=== PATIENT | female | born 2000 | race Caucasian/White ===

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

== ENCOUNTER 2023-05-22 16:52 | Emergency (ER) | payer BC ==
[2023-05-22 17:31] VITALS: TEMP 99.3
--- NOTE | 2023-05-22 17:32 | ERPHSYRPT ---
- History of Present Illness Time Seen by Provider: 05/22/23 17:28 Source: patient Exam Limitations: no limitations Patient Subjective Stated Complaint: light vaginal bleeding with urination x 2 since 1400. mild pelvic cramping Triage Nursing Assessment: . Physician History: Patient is a 22-year-old female G1, P0 M0 A0, currently 18 weeks presents to our ED for evaluation of light vaginal bleeding which is observed during urination. Patient observed for bleeding today at approximately 2 PM. Bleeding is associated with mild pelvic cramping. No trauma. No fever. Patient's HVAC INSTRUCTOR is Dr. Barraza. No trauma. No fever. No dysuria. Symptoms are mild to moderate in intensity. No specific worsening improving factors. Patient advised that she had a pelvic exam for infection with Dr. Barraza Patient declined another vaginal/pelvic exam today. Patient states she just wants to be sure her baby is okay. Patient declined pain medication. She voices no other complaints or concerns at this time. Portions of this note were created with voice recognition technology. There may be grammatical, spelling, punctuation or sound alike errors Timing/Duration: today Severity: moderate Modifying Factors: Improves With: nothing Associated Symptoms: denies symptoms Allergies/Adverse Reactions: No Known Drug Allergies Allergy (Verified 05/22/23 17:13) Hx Tetanus, Diphtheria Vaccination/Date Given: No (unknown) Hx Influenza Vaccination/Date Given: (unknown) Travel Risk - International Travel Have you traveled outside of the country in past 3 weeks: No - Coronavirus Screening Are you exhibiting any of the following symptoms?: No Close contact with a COVID-19 positive Pt in past 14-21 Days: No - Vaccine Status Have you recieved a Covid-19 vaccination: No - Review of Systems Constitutional: No Symptoms, No Fever, No Chills Eyes: No Symptoms Ears, Nose, & Throat: No Symptoms Respiratory: No Symptoms, No Cough, No Dyspnea Cardiac: No Symptoms, No Chest Pain, No Edema, No Syncope Abdominal/Gastrointestinal: No Symptoms, No Abdominal Pain, No Nausea, No Vomiting, No Diarrhea Genitourinary Symptoms: No Symptoms, No Dysuria Musculoskeletal: No Symptoms, No Back Pain, No Neck Pain Skin: No Symptoms, No Rash Neurological: No Symptoms, No Dizziness, No Focal Weakness, No Sensory Changes Psychological: No Symptoms Endocrine: No Symptoms Hematologic/Lymphatic: No Symptoms Immunological/Allergic: No Symptoms All Other Systems: Reviewed and Negative - Past Medical History Pertinent Past Medical History: No - Past Surgical History Past Surgical History: Yes Gastrointestinal: Appendectomy - Social History Smoking Status: Current every day smoker Exposure to second hand smoke: No Drug Use: marijuana Patient Lives Alone: Yes - Female History Hx Last Menstrual Period: January 05 Hx Now: Yes Gestational Age: 18 weeks - Nursing Vital Signs Nursing Vital Signs: Initial Vital Signs Temperature 99.3 F 05/22/23 17:06 Pulse Rate 97 H 05/22/23 17:06 Respiratory Rate 18 05/22/23 17:06 Blood Pressure 136/67 05/22/23 17:06 O2 Sat by Pulse Oximetry 98 05/22/23 17:06 Pain Scale Pain Intensity 5 - Physical Exam General Appearance: no apparent distress, alert Eye Exam: PERRL/EOMI, eyes nml inspection Ears, Nose, Throat Exam: normal ENT inspection, TMs normal, pharynx normal, moist mucous membranes Neck Exam: normal inspection, non-tender, supple, full range of motion Respiratory Exam: normal breath sounds, lungs clear, airway intact, No respiratory distress Cardiovascular Exam: regular rate/rhythm, normal heart sounds, normal peripheral pulses Gastrointestinal/Abdomen Exam: soft, normal bowel sounds, No tenderness, No mass Back Exam: normal inspection, normal range of motion, No CVA tenderness, No vertebral tenderness Extremity Exam: normal inspection, normal range of motion, pelvis stable Neurologic Exam: alert, oriented x 3, cooperative, normal mood/affect, sensation nml, No motor deficits Skin Exam: normal color, warm, dry, No rash Lymphatic Exam: No adenopathy SpO2 Interpretation: normal SpO2: 98 O2 Delivery: Room Air - Course Nursing assessment & vital signs reviewed: Yes - Radiology Ultrasound Exam OB Ultrasound: discussed w/radiologist (Per food service team member heart tone is 153. Viable fetus. No abnormalities observed on today's pelvic ultrasound) Ordered Tests: Active Orders 24 hr Category Date Time Status OB FOLLOW UP PER FETUS [US] Stat Exams 05/22/23 17:25 Taken CULTURE,URINE Stat Lab 05/22/23 17:31 Received HCG, Quantitative (Inhouse) Stat Lab 05/22/23 17:31 Completed UA W/RFX UR CULTURE Stat Lab 05/22/23 17:31 Completed Medication Summary Discontinued Medications Generic Name Dose Route Start Last Admin Trade Name Freq PRN Reason Stop Dose Admin Nitrofurantoin Macrocrystals 100 mg 05/22/23 18:23 05/22/23 18:31 Nitrofurantoin Macro 100 Mg Capsule PO 05/22/23 18:24 100 mg STAT ONE Administration Nitrofurantoin Macrocrystals Confirm 05/22/23 18:31 Nitrofurantoin Macro 100 Mg Capsule Administered 05/22/23 18:32 Dose 100 mg .ROUTE .STK-MED ONE Rho Immune Globulin 300 mcg 05/22/23 18:54 Rho(D) Immune Globulin 300 Mcg/Syr Ml IM 05/22/23 18:55 .ONCE ONE Lab/Rad Data: Laboratory Results 05/22/23 05/22/23 05/22/23 Range/Units 17:38 17:31 17:31 Beta HCG, Quant [id number] mIU/ml Urine Color Yellow (Yellow) Urine Appearance Clear (Clear) Urine pH 6.5 (4.6-8.0) Ur Specific [place] 1.015 (1.005-1.030) Urine Protein Negative (Negative) Urine Glucose (UA) Negative (Negative) mg/dL Urine Ketones Negative (Negative) Urine Blood Moderate A (Negative) Urine Nitrite Negative (Negative) Urine Bilirubin Negative (Negative) Urine Urobilinogen 1.0 A (0.2) mg/dL Ur Leukocyte Esterase Small A (Negative) U Hyaline Cast (Auto) NONE SEEN (0-2) /LPF Urine Microscopic RBC 6-10 A (0-5) /HPF Urine Microscopic WBC 11-20 A (0-5) /HPF Ur Epithelial Cells Moderate A (None Seen) /HPF Urine Bacteria Rare A (None Seen) /HPF Urine Culture Reflexed YES (NO) ABO Group A Rh Factor NEGATIVE Antibody Screen NEGATIVE (NEGATIVE) - Progress Progress: improved Progress Note: 05/22/23 19:03 Patient reassessed. She is resting comfortably. No active bleeding. Work-up reveals urinary tract infection. Patient received a dose of Macrobid in our ED. Patient is Rh-. The patient received a dose of RhoGAM in our ED as well. Ultrasound reveals a viable fetus with a heart rate of 153. No abnormalities observed. Case discussed with patient's HVAC INSTRUCTOR physician Dr. Barraza who agrees with plan of care. No further recommendations per patient's OB. We will discharge patient home. Vital stable. Patient voices no other complaints or concerns at this time. Portions of this note were created with voice recognition technology. There may be grammatical, spelling, punctuation or sound alike errors 05/22/23 19:09 Patient is 22-year-old female currently 18 weeks . Patient presents to our ED with some vaginal bleeding. Patient declined a pelvic exam. Physical exam otherwise unremarkable. Patient is Rh-. RhoGAM administered. UTI observed on urinalysis. Patient received a dose of Macrobid. A prescription for Macrobid forwarded to patient's pharmacy. Patient resting comfortably. No active bleeding. Will discharge home. Patient will follow-up with HVAC INSTRUCTOR within 48 hours for reevaluation. Complexity of problems addressed is moderate acute complicated No critical care time Complex of data reviewed and analyzed is extensive Labs ordered. Labs reviewed. Clinical correlation made between findings and history and physical examination. Final diagnosis established. Patient treated accordingly. Patient management discussed with HVAC INSTRUCTOR physician, Risk complication and or risk morbidity/mortality of patient management is moderate. A prescription for Macrobid for to the patient's pharmacy. Patient agrees to follow-up with her HVAC INSTRUCTOR physician within 48 hours for reevaluation. Time to discharge patient approximately 15 minutes. No social determinants of health present to impede follow-up. Plan of care established for shared decision making. Vital stable. Patient voices no other complaints or concerns at this time. Portions of this note were created with voice recognition technology. There may be grammatical, spelling, punctuation or sound alike errors \ Counseled pt/family regarding: lab results, diagnosis, need for follow-up, rad results - Departure Departure Disposition: Home Clinical Impression: UTI (urinary tract infection), Vaginal bleeding in patient at less than 20 weeks gestation, Threatened miscarriage Condition: Stable Critical Care Time: No Referrals: DOCTOR,NO FAMILY [Primary Care Provider] - Follow up/PCP as directed Additional Instructions: Discharge/Care Plan ARACELIMAGGY was seen on 05/22/23 in the Emergency Room. The patient was counseled regarding Diagnosis,Lab results, Imaging studies, need for follow up and when to return to the Emergency Room. Prescriptions given: Discharge Note I have spoken with the patient and/or caregivers. I have explained the patient's condition, diagnosis and treatment plan based on the information available to me at this time. I have answered the patient's and/or caregiver's questions and addressed any concerns. The patient and/or caregivers have as good understanding of the patient's diagnosis, condition and treatment plan as can be expected at this point. The vital signs have been stable. The patient's condition is stable and appropriate for discharge from the emergency department. The patient will pursue further outpatient evaluation with the primary care physician or other designated or consulting physician as outlined in the discharge instructions. The patient and/or caregivers are agreeable to this plan of care and follow-up instructions have been explained in detail. The patient and/or caregivers have received these instruction. The patient/and or caregivers are aware that any significant change in condition or worsening of symptoms should prompt an immediate return to this or the closest emergency department or call 911. Prescriptions: Nitrofurantoin Macro 100 mg [Macrobid 100MG Capsule] 100 mg PO BID 7 Days #14 cap
[2023-05-22 17:57] LABS: Appearance Clear (Clear); Bacteria Rare /HPF (None Seen); Bilirubin Negative (Negative); Blood Moderate (Negative); Epithelial Cells Moderate /HPF (None Seen); Glucose, Urine Negative (Negative); Hyaline Casts NONE SEEN /LPF (0-2); Ketones Negative (Negative); Leukocyte Esterase Small (Negative); Nitrite Negative (Negative); Ph 6.5 (4.6-8.0); Protein,Urine Dip Negative (Negative); Specific Gravity 1.015 (1.005-1.030)
[2023-05-22 18:00] LABS: ADD URINE CULTURE? YES (NO)
[2023-05-22] MEDS ORDERED: Macrobid 100MG Capsule ONE (18:31)
[2023-05-22] MEDS: Macrobid 100MG Capsule PO ONE (18:31)
[2023-05-22 18:35] LABS: ABO TYPING A; Antibody Screen NEGATIVE (NEGATIVE); RH TYPING NEGATIVE
[2023-05-22 19:07] VITALS: BP 113/58; RESP 16
[2023-05-22] MEDS: Rhogam Plus 300 MCG IM ONE (19:23)
[2023-05-22 19:28] VITALS: PULSE 94; O2SAT 97
--- NOTE | 2023-05-23 08:52 | XRAY ---
Indication: Bleeding. viability. Limited transabdominal OB ultrasound demonstrates single intrauterine with mean gestational age 18 weeks 6 days. heart rate 153 BPM. Posterior placenta without abruption/previa. Cervical length is 3.5 cm. Comment: Preliminary report was given.
== END 2023-05-22 19:44 | disposition home or self-care (01) ==
LOC: ED 16:52
DX: O23.42 Unspecified infection of urinary tract in pregnancy, second trimester (principal); N39.0 Urinary tract infection, site not specified; O20.0 Threatened abortion; Z3A.18 18 weeks gestation of pregnancy; Z28.310 Unvaccinated for COVID-19; Z72.0 Tobacco use
CPT/HCPCS: 36415; 76816; 81001; 84702; 86850; 86900; 86901; 87086; 96372; 99284; J2790; A9270-GY

== ENCOUNTER 2023-09-03 15:40 | Observation (INO) | payer BC, OTHER ==
[2023-09-03 22:43] VITALS: RESP 18
[2023-09-03] MEDS: Lactated Ringers 1,000 ML IV SCH (22:49)
[2023-09-04] MEDS: Lactated Ringers 1,000 ML IV SCH (02:20)
[2023-09-04 05:30] LABS: ALBUMIN 2.9 g/dL (3.5-5.0); ANION GAP 8.3 MEQ/L (5-15); BILIRUBIN,TOTAL 0.2 mg/dL (0.2-1.3); Calcium 8.7 mg/dL (8.4-10.2); Creatinine 1 0.47 mg/dL (0.52-1.04); EST GLOMERULAR FILTRATION RATE 137.1 ML/MIN; Potassium 3.8 mmol/L (3.5-5.1); Total Protein 5.6 g/dL (6.3-8.2)
[2023-09-04] MEDS ORDERED: Sodium Chloride 0.9% 1000 ML 1,000 ML IV STA (08:17)
[2023-09-04 09:23] VITALS: BP 123/58; PULSE 95; TEMP 98.6; O2SAT 97
== END 2023-09-04 12:45 | disposition home or self-care (01) ==
LOC: OB.NST 15:40 → OB 19:27
PROVIDERS: ADMIT Obstetrics & Gynecology; ATTEND Obstetrics & Gynecology
DX: Z34.03 Encounter for supervision of normal first pregnancy, third trimester (principal); Z3A.33 33 weeks gestation of pregnancy; R82.4 Acetonuria
CPT/HCPCS: 36415; 59025; 80053; 82947; 99213; G0378

== ENCOUNTER 2023-09-23 19:21 | Observation (INO) | payer BC, OTHER ==
[2023-09-23 20:02] VITALS: BP 113/68; PULSE 102; RESP 20; TEMP 98.2; O2SAT 97
[2023-09-23 20:19] LABS: ADD URINE CULTURE? YES (NO); Appearance Cloudy (Clear); Bacteria Rare /HPF (None Seen); Bilirubin Small (Negative); Blood Negative (Negative); Budding Yeast Rare /HPF (None Seen); Epithelial Cells Moderate /HPF (None Seen); Glucose, Urine Negative (Negative); Hyaline Casts NONE SEEN /LPF (0-2); Ketones Trace (Negative); Leukocyte Esterase Trace (Negative); Nitrite Negative (Negative); Protein,Urine Dip Trace (Negative); RBC 0-2 /HPF (0-5); Specific Gravity 1.025 (1.005-1.030)
== END 2023-09-23 20:56 | disposition home or self-care (01) ==
LOC: OB 19:21
PROVIDERS: ADMIT Family Medicine; ATTEND Family Medicine
DX: Z34.03 Encounter for supervision of normal first pregnancy, third trimester (principal); Z3A.36 36 weeks gestation of pregnancy
CPT/HCPCS: 81001; 87086; G0378; G0379

== ENCOUNTER 2023-10-13 08:41 | Inpatient (IN) | payer BC, OTHER ==
[2023-10-13] MEDS ORDERED: TYLENOL EXTRA STRENGTH 500 MG PO PRN (16:00)
[2023-10-13] MEDS ORDERED: Zofran 4 MG/2 ML VIAL IV PRN (16:00)
[2023-10-13] MEDS ORDERED: BRETHINE 1 MG/ML SQ PRN (16:00)
[2023-10-13 16:41] LABS: Absolute Neutrophil Ct (ANC) 8.47 x10^3/uL (1.4-6.9); BASOPHIL % 0.2 % (0.0-0.4); Basophil (Absolute #) 0.02 x10^3/uL (0-0.4); Eosinophil % 0.5 % (0.00-5.0); Eosinophil (Absolute #) 0.05 x10^3/uL (0-0.5); Hematocrit 28.4 % (35-47); Hemoglobin 9.3 g/dL (12.0-16.0); IMMATURE GRAN # 0.05 x10^3u/L (0.00-0.03); IMMATURE GRAN % 0.5 % (0.00-0.4); Lymphocytes % 12.1 % (24.0-44.0); Mean Cell Volume 84.8 fL (78-100); Mean Corpuscular Hemoglobin 27.8 pg (26-32); Mean Corpuscular Hgb Concent. 32.7 g/dL (32-36); Monocyte (Absolute #) 0.88 x10^3/uL (0.0-1.3); Monocytes % 8.2 % (0.0-12.0); Neutrophil % 78.5 % (36.0-66.0); Platelet Count 207 x10^3/uL (150-450); Red Blood Count 3.35 x10^6/uL (4.1-5.4); Red Cell Distribution Width 13.6 % (11.5-14.0); White Blood Count 10.8 x10^3/uL (4.0-10.5)
[2023-10-13] MEDS: CYTOTEC PO SCH ×4 (16:58→23:01)
[2023-10-13 16:59] LABS: Amphetamine,Urine NEGATIVE (NEGATIVE); Barbiturate,Urine NEGATIVE (NEGATIVE); Benzodiazepine,Urine NEGATIVE (NEGATIVE); Cocaine,Urine NEGATIVE (NEGATIVE); Methadone,Urine NEGATIVE (NEGATIVE); Opiate,Urine NEGATIVE (NEGATIVE); PCP,Urine NEGATIVE (NEGATIVE); THC,Urine NEGATIVE (NEGATIVE)
[2023-10-13 17:26] LABS: ABO TYPING A; Antibody Screen NEGATIVE (NEGATIVE); RH TYPING NEGATIVE
[2023-10-13 19:19] LABS: Appearance Turbid (Clear); Bilirubin Moderate (Negative); Blood Negative (Negative); Glucose, Urine 100 mg/dL (Negative); Ketones Trace (Negative); Leukocyte Esterase Trace (Negative); Nitrite Positive (Negative); Ph 5.5 (4.6-8.0); Protein,Urine Dip 30 (Negative); Specific Gravity >=1.030 (1.005-1.030)
[2023-10-13 19:54] LABS: Bacteria Few /HPF (None Seen)
[2023-10-13 19:59] LABS: ADD URINE CULTURE? YES (NO); Amourphous Crystal Many /HPF (None Seen); Epithelial Cells Few /HPF (None Seen); Hyaline Casts None Seen /LPF (0-2); RBC 0-2 /HPF (0-5); WBC 0-2 /HPF (0-5)
[2023-10-14] MEDS ORDERED: OMNIPEN 2 GM*** 2 G in Sodium Chloride 100ML MINI-BAG PLUS 100 ML IV ONE ×2
[2023-10-14] MEDS ORDERED: Lactated Ringers 1,000 ML IV ONE ×2 (00:19→07:00)
[2023-10-14] MEDS: Lactated Ringers 1,000 ML IV SCH ×4 (00:22→16:06)
[2023-10-14] MEDS: CYTOTEC PO SCH ×3 (00:59→05:15)
[2023-10-14] MEDS: OMNIPEN 1 GM*** 1 GM in Sodium Chloride 100ML MINI-BAG PLUS 100 ML IV SCH ×4 (03:49→16:06)
[2023-10-14] MEDS ORDERED: Ephedrine Sulfate 50 MG/ML IV PRN (07:00)
[2023-10-14] MEDS ORDERED: PITOCIN 30 UNITS/ LR 500 ML 30 UNITS/500 ML PLAST..BAG IV SCH ×2 (07:00→12:00)
[2023-10-14] MEDS ORDERED: FENTANYL 2 MCG-BUPIV 0.125%-NS 250 ML Epidur 250 ML EPIDURAL SCH (07:00)
[2023-10-14] MEDS ORDERED: XYLOCAINE 1% HCL 20 ML MDV IJ PRN (12:00)
[2023-10-14] MEDS ORDERED: Dermoplast Spray ONE (20:38)
[2023-10-14] MEDS ORDERED: TUCKS TP ONE (20:38)
[2023-10-14] MEDS ORDERED: Dermoplast Spray TP PRN (21:39)
[2023-10-14] MEDS ORDERED: CORTISONE 1% CREAM TP PRN (21:39)
[2023-10-14] MEDS: TUCKS TP PRN (21:45)
[2023-10-14] MEDS: MOTRIN 400 MG PO PRN (23:36)
[2023-10-15 07:22] LABS: Absolute Neutrophil Ct (ANC) 7.56 x10^3/uL (1.4-6.9); BASOPHIL % 0.2 % (0.0-0.4); Basophil (Absolute #) 0.02 x10^3/uL (0-0.4); Eosinophil % 0.6 % (0.00-5.0); Eosinophil (Absolute #) 0.06 x10^3/uL (0-0.5); Hematocrit 26.3 % (35-47); Hemoglobin 8.5 g/dL (12.0-16.0); IMMATURE GRAN # 0.06 x10^3u/L (0.00-0.03); IMMATURE GRAN % 0.6 % (0.00-0.4); Lymphocyte (Absolute #) 2.24 x10^3/uL (1.0-4.6); Lymphocytes % 20.8 % (24.0-44.0); Mean Cell Volume 87.4 fL (78-100); Mean Corpuscular Hemoglobin 28.2 pg (26-32); Mean Corpuscular Hgb Concent. 32.3 g/dL (32-36); Mean Platelet Volume 9.5 fL (7.5-11.0); Monocyte (Absolute #) 0.81 x10^3/uL (0.0-1.3); Monocytes % 7.5 % (0.0-12.0); Neutrophil % 70.3 % (36.0-66.0); Platelet Count 165 x10^3/uL (150-450); Red Blood Count 3.01 x10^6/uL (4.1-5.4); Red Cell Distribution Width 13.8 % (11.5-14.0); White Blood Count 10.8 x10^3/uL (4.0-10.5)
[2023-10-15] MEDS: Docusate Sodium 100 MG PO SCH ×2 (09:14→21:35)
[2023-10-15] MEDS: MOTRIN 400 MG PO PRN ×2 (09:14→21:36)
[2023-10-15] MEDS ORDERED: Adacel Vial IM ONE (10:00)
[2023-10-15] MEDS ORDERED: FERREX 150 PO SCH (10:00)
--- NOTE | 2023-10-15 10:32 | PCM.NOTE ---
Date and Time: 10/15/23 1031 Subjective Assessment: ppd 1 sp pt resting in bed and doing well. able to ambulate and tolerate diet vss afebrile abd; soft uterus; firm lochia; mild hgb. 8.3 a/p sp ppd 1 anticipate discharge tomorrow OBJECTIVE DATA Vital Signs: Vital Signs - 24 hr Temp Pulse Resp BP BP Pulse Ox 10/15/23 02:16 98.3 F 81 18 114/53 96 10/14/23 23:39 98.6 F 87 18 134/63 100 10/14/23 22:05 98.6 F 109 H 18 122/69 97 10/14/23 21:30 98.6 F 122 H 20 118/57 97 10/14/23 21:00 98.5 F 120 H 20 140/63 96 10/14/23 20:30 98.6 F 111 H 18 115/56 111 H 10/14/23 20:15 98.9 F 121 H 18 118/55 97 10/14/23 20:00 98.8 F 105 H 18 121/58 96 10/14/23 19:30 98.4 F 107 H 18 110/53 98 10/14/23 18:45 98.4 F 105 H 18 124/56 96 10/14/23 18:20 98.4 F 112 H 18 135/57 97 10/14/23 18:00 98.4 F 99 H 18 122/59 97 10/14/23 17:45 98.4 F 104 H 18 118/57 97 10/14/23 17:30 98.4 F 95 H 18 110/55 97 10/14/23 17:15 98.4 F 96 H 18 116/56 97 10/14/23 17:00 98.0 F 102 H 18 103/60 97 10/14/23 16:45 98.0 F 103 H 18 103/66 97 10/14/23 16:30 98.0 F 103 H 18 125/61 97 10/14/23 16:15 98.0 F 90 18 122/77 97 10/14/23 16:00 98.0 F 82 18 119/58 119/58 96 10/14/23 15:45 98.0 F 100 H 18 139/62 96 10/14/23 15:30 98.0 F 84 18 125/58 98 10/14/23 15:15 98.0 F 88 18 120/68 98 10/14/23 15:00 98.0 F 81 18 102/54 98 10/14/23 14:45 98.0 F 84 18 97/48 98 10/14/23 14:15 98.0 F 100 H 18 98 10/14/23 14:00 98.0 F 93 H 18 115/62 98 10/14/23 13:45 98.0 F 90 18 105/51 98 10/14/23 13:30 98.0 F 90 18 105/51 98 10/14/23 13:15 98.0 F 90 18 102/52 98 10/14/23 13:00 98.0 F 83 18 99/49 98 10/14/23 12:45 98.0 F 82 18 96/53 98 10/14/23 12:30 98.0 F 93 H 18 113/53 96 10/14/23 12:15 98.0 F 90 18 114/53 96 10/14/23 12:00 98.0 F 96 H 18 109/57 109/57 97 10/14/23 11:45 98.0 F 96 H 18 106/54 96 10/14/23 11:30 98.0 F 90 18 99/52 96 10/14/23 11:15 98.0 F 83 18 99/52 92 L 10/14/23 11:00 98.0 F 90 18 106/58 100 10/14/23 10:45 98.0 F 100 H 18 107/62 100 Pain Assessment - Last Documented Pain Intensity [Lower] 2 Pain Intensity 6 Pain Scale Used 0-10 Pain Scale Intake and Output: Intake & Output 10/12/23 10/13/23 10/14/23 10/15/23 11:59 11:59 11:59 11:59 Intake Total 1000 2300 Output Total 500 Balance 1000 1800 Weight 115.666 kg Lab Results: Lab Results-Last 24 Hours 10/14/23 10/15/23 Range/Units 20:24 07:15 WBC 10.8 H (4.0-10.5) x10^3/uL RBC 3.01 L (4.1-5.4) x10^6/uL Hgb 8.5 L (12.0-16.0) g/dL Hct 26.3 L (35-47) % MCV 87.4 (78-100) fL MCH 28.2 (26-32) pg MCHC 32.3 (32-36) g/dL RDW 13.8 (11.5-14.0) % Plt Count 165 (150-450) x10^3/uL MPV 9.5 (7.5-11.0) fL Gran % 70.3 H (36.0-66.0) % Immature Gran % (Auto) 0.6 H (0.00-0.4) % Nucleat RBC Rel Count 0.0 (0.00-0.1) % Eos # (Auto) 0.06 (0-0.5) x10^3/uL Immature Gran # (Auto) 0.06 H (0.00-0.03) x10^3u/L Absolute Lymphs (auto) 2.24 (1.0-4.6) x10^3/uL Absolute Monos (auto) 0.81 (0.0-1.3) x10^3/uL Absolute Nucleated RBC 0.00 (0.00-0.01) x10^3u/L Lymphocytes % 20.8 L (24.0-44.0) % Monocytes % 7.5 (0.0-12.0) % Eosinophils % 0.6 (0.00-5.0) % Basophils % 0.2 (0.0-0.4) % Absolute Granulocytes 7.56 H (1.4-6.9) x10^3/uL Basophils # 0.02 (0-0.4) x10^3/uL Screen SEE SEPARATE REPORT Assessment/Plan (1) Vaginal delivery Current Visit: Yes Status: Acute Code(s): O80 - ENCOUNTER FOR FULL-TERM UNCOMPLICATED DELIVERY
[2023-10-15] MEDS ORDERED: Rhogam Plus 300 MCG IM ONE (11:00)
[2023-10-15] MEDS: FERREX 150 PO SCH ×2 (11:48→21:35)
[2023-10-15] MEDS: TYLENOL EXTRA STRENGTH 500 MG PO PRN (16:36)
[2023-10-16] MEDS: TYLENOL EXTRA STRENGTH 500 MG PO PRN (02:22)
--- NOTE | 2023-10-16 07:55 | PCM.NOTE ---
Date and Time: 10/16/23 0754 Subjective Assessment: ppd 2 sp pt resting in bed and doing well able to ambulate and tolerate diet. vss afebrile abd; soft uterus; firm lochia; mild a/p sp ppd 2 dc home today should fu in office in 3 wks for check will give iron supplementation for hgb at 8.5 OBJECTIVE DATA Vital Signs: Vital Signs - 24 hr Temp Pulse Resp BP Pulse Ox 10/16/23 02:00 97 F 81 20 119/63 98 10/15/23 20:00 97.1 F 82 18 121/62 98 10/15/23 14:00 97.7 F 88 18 103/55 96 10/15/23 08:00 97.5 F 98 H 18 117/64 98 Pain Assessment - Last Documented Pain Intensity [Lower] 0 Pain Intensity 0 Pain Scale Used 0-10 Pain Scale Intake and Output: Intake & Output 10/13/23 10/14/23 10/15/23 10/16/23 11:59 11:59 11:59 11:59 Intake Total 1000 2300 3000 Output Total 500 Balance 1000 1800 3000 Weight 115.666 kg Assessment/Plan (1) Vaginal delivery Current Visit: Yes Status: Acute Code(s): O80 - ENCOUNTER FOR FULL-TERM UNCOMPLICATED DELIVERY (2) Anemia affecting Current Visit: Yes Status: Acute Code(s): O99.019 - ANEMIA COMPLICATING , UNSPECIFIED TRIMESTER
--- NOTE | 2023-10-16 08:00 | PCM.DS ---
Discharge Summary Date of Admission: 10/14/23 08:41 Admitting Physician: CARMELITA SUAREZ DO Consults: Consults on Case 10/14/23 07:00 Notify Anesthesia Provider PRN Primary Care Provider: CARMELITA SUAREZ DO Allergies Allergies No Known Drug Allergies Allergy (Verified 09/21/23 09:07) Hospital Summary - Hospital Course Hospital Course: pt admitted on oct 13 at 39 wks gestation with hx of gdm diet control and was placed with liao induction and oral cytotec to be removed on oct 14 and pitocin was started and subsequently delivered live baby girl via without complication on oct 14. during period did well able to ambulate and tolerate diet. hgb at 8.5 and stable. pt at this time stable for discharge and was given iron supplementation to take twice daily and was advised to fu in office in 3 wks for care. all questions answered to her satisfaction. pt did have minor vaginal sulcus tear during delivery repaired with 2-0 chromic suture and hemostasis obtaind. - Vitals & Intake/Output Vital Signs: Vital Signs Temperature 97 F 10/16/23 02:00 Pulse Rate 81 10/16/23 02:00 Respiratory Rate 20 10/16/23 02:00 Blood Pressure 119/63 10/16/23 02:00 O2 Sat by Pulse Oximetry 98 10/16/23 02:00 Intake & Output: Intake & Output 10/13/23 10/14/23 10/15/23 10/16/23 11:59 11:59 11:59 11:59 Intake Total 1000 2300 3000 Output Total 500 Balance 1000 1800 3000 Weight 115.666 kg - Lab Result Diagrams: 10/15/23 07:15 Micro Results-Entire Visit: Microbiology 10/14/23 10:30 Urine Culture - Final Catherized NO GROWTH 10/13/23 16:30 Urine Culture - Final Clean Catch Midstream MIXED JANEE; 3 OR MORE TYPES. NO PREDOMINANT ORGANISM. NO FURTHER WORKUP. PLEASE RESUBMIT IF CLINICALLY INDICATED. Final Diagnosis/Problem List - Final Discharge Diagnosis/Problem (1) Vaginal delivery Current Visit: Yes Status: Acute Code(s): O80 - ENCOUNTER FOR FULL-TERM UNCOMPLICATED DELIVERY (2) Anemia affecting Current Visit: Yes Status: Acute Code(s): O99.019 - ANEMIA COMPLICATING PRE GNANCY, UNSPECIFIED TRIMESTER - Discharge Disposition: Home, Self-Care Condition: Stable Prescriptions: New Ferrous Sulfate 325 mg [Feosol 325 mg] 325 mg PO BID #60 tablet No Action Metformin HCl 500 mg [Glucophage 500 MG] 500 mg PO BIDWM Follow up with: CARMELITA SUAREZ DO [Primary Care Provider] - 3 weeks
[2023-10-16] MEDS: FERREX 150 PO SCH (10:34)
[2023-10-16] MEDS: Docusate Sodium 100 MG PO SCH (10:34)
[2023-10-16 10:53] VITALS: RESP 18
[2023-10-16] MEDS: MOTRIN 400 MG PO PRN (15:08)
[2023-10-16] MEDS: TUCKS TP PRN (16:42)
[2023-10-16 18:36] VITALS: BP 132/67; PULSE 90; TEMP 98.6; O2SAT 99
== END 2023-10-16 18:30 | disposition home or self-care (01) | DRG 807 ==
LOC: OB 08:41 → OBSVTOIN 10-14 08:41
PROVIDERS: ADMIT Obstetrics & Gynecology; ATTEND Obstetrics & Gynecology
PROC: 10E0XZZ Delivery of Products of Conception, External Approach (ICD-10-PCS; principal; 2023-10-14)
PROC: 0HQ9XZZ Repair Perineum Skin, External Approach (ICD-10-PCS; 2023-10-14)
DX: O69.81X0 Labor and delivery complicated by cord around neck, without compression, not applicable or unspecified (principal); Z37.0 Single live birth; O24.420 Gestational diabetes mellitus in childbirth, diet controlled; O70.0 First degree perineal laceration during delivery; Z3A.39 39 weeks gestation of pregnancy; O99.013 Anemia complicating pregnancy, third trimester; Z20.828 Contact with and (suspected) exposure to other viral communicable diseases
CPT/HCPCS: 36415; 80307; 81001; 85025; 85461; 86850; 86900; 86901; 87086; 87651; 90471; 90715; 96372; G0378; G0379; J0290; J2590; J2790; A9270-GY

== ENCOUNTER 2023-10-19 23:05 | Emergency (ER) | payer BC, OTHER ==
--- NOTE | 2023-10-19 23:07 | ERPHSYRPT ---
- History of Present Illness Time Seen by Provider: 10/19/23 23:07 Source: patient, family Exam Limitations: no limitations Physician History: This is a 23-year-old white female patient Dr. Samuels who presents with bilateral earaches. Her right ear pain began first followed by the left ear pain. Both earaches travel down her throat when she swallows. The left ear has more pain now than the right ear. The pain is described as sharp, throbbing. Patient denies fever and chills. Patient was exposed to individuals that tested positive for COVID approximately 3 days ago. Timing/Duration: gradual onset Severity: mild (To moderate) ENT Location: ear (R), ear (L) Prearrival Treatment: no prearrival treatment Associated Symptoms: ear pain (R), ear pain (L) Allergies/Adverse Reactions: No Known Drug Allergies Allergy (Verified 10/19/23 23:22) Hx Tetanus, Diphtheria Vaccination/Date Given: No (unknown) Hx Influenza Vaccination/Date Given: (unknown) Travel Risk - International Travel Have you traveled outside of the country in past 3 weeks: No - Coronavirus Screening Are you exhibiting any of the following symptoms?: No Close contact with a COVID-19 positive Pt in past 14-21 Days: No - Vaccine Status Have you recieved a Covid-19 vaccination: No - Review of Systems Constitutional: No Symptoms Eyes: No Symptoms Ears, Nose, & Throat: Ear Pain (Bilateral left worse than right) Respiratory: No Symptoms Cardiac: No Symptoms Abdominal/Gastrointestinal: No Symptoms Genitourinary Symptoms: No Symptoms Musculoskeletal: No Symptoms Skin: No Symptoms Neurological: No Symptoms Psychological: No Symptoms Endocrine: No Symptoms Hematologic/Lymphatic: No Symptoms Immunological/Allergic: No Symptoms All Other Systems: Reviewed and Negative - Past Medical History Pertinent Past Medical History: Yes Neurological History: No Pertinent History ENT History: No Pertinent History Cardiac History: No Pertinent History Respiratory History: No Pertinent History Endocrine Medical History: Other Musculoskeletal History: No Pertinent History GI Medical History: No Pertinent History History: No Pertinent History Psycho-Social History: No Pertinent History Female Reproductive Disorders: No Pertinent History Other Medical History: GDM - Past Surgical History Past Surgical History: Yes Gastrointestinal: Appendectomy Genitourinary: No Pertinent History Musculoskeletal: No Pertinent History Female Surgical History: No Pertinent History Other Surgical History: 2011 Appendectomy - Social History Smoking Status: Former smoker How long have you smoked: 4 yrs Exposure to second hand smoke: Yes Drug Use: none Patient Lives Alone: Yes - Nursing Vital Signs Nursing Vital Signs: Initial Vital Signs Pulse Rate 95 H 10/19/23 23:06 Respiratory Rate 18 10/19/23 23:06 O2 Sat by Pulse Oximetry 96 10/19/23 23:06 Pain Scale Pain Intensity 9 - Physical Exam General Appearance: no apparent distress, alert, anxiety Eye Exam: bilateral eye: normal inspection, PERRL, EOMI Ear Exam: right ear: canal normal, left ear: erythema, swelling, bilateral ear: auricle normal, tenderness, TM red Throat Exam: normal Neck Exam: normal inspection, non-tender, supple, full range of motion Cardiovascular/Respiratory Exam: chest non-tender, no respiratory distress Abdominal Exam: non-tender Neurologic Exam: alert, oriented x 3, cooperative, human resources leader II-XII nml as tested, normal mood/affect, nml cerebellar function, nml station & gait, sensation nml Skin Exam: normal color, warm, dry SpO2 Interpretation: normal O2 Delivery: Room Air - Course Nursing assessment & vital signs reviewed: Yes Ordered Tests: Medication Summary Discontinued Medications Generic Name Dose Route Start Last Admin Trade Name Eloyq PRN Reason Stop Dose Admin Hydrocodone Bitart/Acetaminophen 1 tab 10/19/23 23:59 Hydrocodone/Apap 5/325 1 Tab Tablet PO 10/20/23 00:00 STAT ONE Hydrocodone Bitart/Acetaminophen Confirm 10/20/23 00:04 Hydrocodone/Apap 5/325 1 Tab Tablet Administered 10/20/23 00:05 Dose 1 tab .ROUTE .STK-MED ONE Ceftriaxone Sodium 1,000 mg 10/19/23 23:59 Ceftriaxone Sodium 1000 Mg Inj Vial IM 10/20/23 00:00 STAT ONE Ceftriaxone Sodium Confirm 10/20/23 00:04 Ceftriaxone Sodium 1000 Mg Inj Vial Administered 10/20/23 00:05 Dose 1,000 mg .ROUTE .STK-MED ONE - Progress Progress: unchanged Progress Note: 10/20/23 00:17 Patient's medical issue is 1 of low complexity. The level complex in the workup performed is based on review the patient's past medical history, review the patient's medication list, review of patient drug allergy list, history present illness and physical findings on examination. Workup in this patient does not include radiographic or laboratory studies. Counseled pt/family regarding: diagnosis, need for follow-up Medical Desision Making - Independent Historian Additional History obtained from: Relative/friend - Diagnostic Testing Diagnostic test were ordered, analyzed, and reviewed by me: No - Risk of complications The pt has a mod risk of morbidity or mortality based on: Need for prescription drug management - Departure Departure Disposition: Home Clinical Impression: Bilateral otitis media Condition: Stable Critical Care Time: No Referrals: PHILIPP SAMUELS MD [Primary Care Provider] - Follow up/PCP as directed Additional Instructions: May use Tylenol and ibuprofen to help control fever and pain. Take your antibiotics and steroids as prescribed. Prescriptions: Amoxicillin 500 mg Cap [Amoxil 500 mg] 500 mg PO TID #30 cap Prednisone 10 mg [Deltasone 10 mg] 10 mg PO TID #12 tablet
[2023-10-19 23:25] VITALS: RESP 18
[2023-10-19] MEDS ORDERED: NORCO 5/325 MG PO ONE (23:59)
[2023-10-19] MEDS ORDERED: Rocephin 1000 MG INJ IM ONE (23:59)
[2023-10-20] MEDS ORDERED: NORCO 5/325 MG ONE (00:04)
[2023-10-20] MEDS ORDERED: Rocephin 1000 MG INJ ONE (00:04)
[2023-10-20 00:39] VITALS: TEMP 98.5
[2023-10-20 00:40] VITALS: BP 131/80; PULSE 93; O2SAT 97
== END 2023-10-20 00:35 | disposition home or self-care (01) ==
LOC: ED 23:05
DX: H66.93 Otitis media, unspecified, bilateral (principal); H92.03 Otalgia, bilateral; Z79.52 Long term (current) use of systemic steroids; Z20.828 Contact with and (suspected) exposure to other viral communicable diseases
CPT/HCPCS: 96372; 99283; J0696; A9270-GY

== ENCOUNTER 2023-11-02 16:07 | Emergency (ER) | payer BC, OTHER ==
--- NOTE | 2023-11-02 16:12 | ERPHSYRPT ---
- History of Present Illness Time Seen by Provider: 11/02/23 16:11 Source: patient Exam Limitations: no limitations Physician History: This is a 23-year-old white female patient of Dr. Hood who has pain and redness in her left breast. She noticed this yesterday. She also measured a fever of 101 F yesterday. Patient took Tylenol prior to arrival and she arrives to the emergency department afebrile. She has not noticed any nipple drainage. She delivered a 2 and half weeks ago. She is not breast-feeding. Timing/Duration: yesterday Severity: mild Modifying Factors: Improves With: nothing Associated Symptoms: fever Allergies/Adverse Reactions: No Known Drug Allergies Allergy (Verified 11/02/23 16:27) Hx Tetanus, Diphtheria Vaccination/Date Given: No (unknown) Hx Influenza Vaccination/Date Given: (unknown) Travel Risk - International Travel Have you traveled outside of the country in past 3 weeks: No - Coronavirus Screening Are you exhibiting any of the following symptoms?: Yes Symptoms: Fever Close contact with a COVID-19 positive Pt in past 14-21 Days: No - Vaccine Status Have you recieved a Covid-19 vaccination: No - Review of Systems Constitutional: Fever Eyes: No Symptoms Ears, Nose, & Throat: No Symptoms Respiratory: No Symptoms Cardiac: No Symptoms Abdominal/Gastrointestinal: No Symptoms Genitourinary Symptoms: No Symptoms Musculoskeletal: No Symptoms Skin: Cellulitis (Left breast) Neurological: No Symptoms Psychological: No Symptoms Endocrine: No Symptoms Hematologic/Lymphatic: No Symptoms Immunological/Allergic: No Symptoms All Other Systems: Reviewed and Negative - Past Medical History Pertinent Past Medical History: Yes Neurological History: No Pertinent History ENT History: No Pertinent History Cardiac History: No Pertinent History Respiratory History: No Pertinent History Endocrine Medical History: Other Musculoskeletal History: No Pertinent History GI Medical History: No Pertinent History History: No Pertinent History Psycho-Social History: No Pertinent History Female Reproductive Disorders: No Pertinent History Other Medical History: GDM - Past Surgical History Past Surgical History: Yes Neuro Surgical History: No Pertinent History Cardiac: No Pertinent History Respiratory: No Pertinent History Gastrointestinal: Appendectomy Genitourinary: No Pertinent History Musculoskeletal: No Pertinent History Female Surgical History: No Pertinent History Other Surgical History: 2011 Appendectomy - Social History Smoking Status: Former smoker How long have you smoked: 4 yrs Exposure to second hand smoke: Yes Drug Use: none Patient Lives Alone: Yes - Nursing Vital Signs Nursing Vital Signs: Initial Vital Signs Temperature 98.9 F 11/02/23 16:19 Pulse Rate 93 H 11/02/23 16:19 Respiratory Rate 14 11/02/23 16:19 Blood Pressure 114/58 11/02/23 16:19 O2 Sat by Pulse Oximetry 96 11/02/23 16:19 Pain Scale Pain Intensity 8 - Physical Exam General Appearance: no apparent distress, alert, anxiety Eye Exam: PERRL/EOMI, eyes nml inspection Ears, Nose, Throat Exam: normal ENT inspection, moist mucous membranes Neck Exam: normal inspection, non-tender, supple, full range of motion Respiratory Exam: airway intact, No chest tenderness, No respiratory distress Cardiovascular Exam: regular rate/rhythm, normal heart sounds, normal peripheral pulses Gastrointestinal/Abdomen Exam: soft, normal bowel sounds, No tenderness Pelvic Exam: not done Rectal Exam: not done Back Exam: normal inspection, normal range of motion, No CVA tenderness, No vertebral tenderness Extremity Exam: normal inspection, normal range of motion, pelvis stable Neurologic Exam: alert, oriented x 3, cooperative, city solicitor II-XII nml as tested, normal mood/affect, nml cerebellar function, nml station & gait, sensation nml Skin Exam: other (Left breast redness the areola and slightly superior on the skin at approximately 12 to 1 o'clock position. No masses. No abscess) Lymphatic Exam: No adenopathy SpO2 Interpretation: normal O2 Delivery: Room Air - Course Nursing assessment & vital signs reviewed: Yes - Progress Progress: unchanged Progress Note: 11/02/23 16:40 This patient's medical issue is 1 of low complexity. The level complexity in the workup performed is based on review of the patient's past medical history, review of the patient's medication list, review the patient's drug allergy list, history present illness and physical findings on examination. No laboratory radiographic studies are necessary in this patient. Counseled pt/family regarding: diagnosis, need for follow-up Medical Desision Making - Independent Historian Additional History obtained from: Spouse - Diagnostic Testing Diagnostic test were ordered, analyzed, and reviewed by me: No - Risk of complications The pt has a mod risk of morbidity or mortality based on: Need for prescription drug management - Departure Departure Disposition: Home Clinical Impression: Acute mastitis of left breast Condition: Stable Critical Care Time: No Referrals: ABRIL,PHILIPP ISAIAS, MD [Primary Care Provider] - Follow up/PCP as directed Additional Instructions: Use Tylenol and ibuprofen to control pain and fever. Warm compresses to the area 2-3 times a day. Do not put the warm compresses directly on your skin. Take your antibiotics as prescribed. Call your primary care provider on 11/05/2023, to make follow-up appointment in the next 3 to 5 days. Prescriptions: Cephalexin Mh 500 mg [Keflex 500 mg] 500 mg PO TID #21 cap
[2023-11-02 16:27] VITALS: BP 114/58; PULSE 93; RESP 14; TEMP 98.9; O2SAT 96
== END 2023-11-02 16:45 | disposition home or self-care (01) ==
LOC: ED 16:07
DX: O91.22 Nonpurulent mastitis associated with the puerperium (principal); R50.9 Fever, unspecified; Z28.310 Unvaccinated for COVID-19
CPT/HCPCS: 99281

== ENCOUNTER 2024-09-07 00:21 | Observation (INO) | payer BC, OTHER ==
[2024-09-07 00:46] VITALS: BP 107/56; PULSE 98; RESP 18; TEMP 98.9; O2SAT 97
== END 2024-09-07 01:28 | disposition home or self-care (01) ==
LOC: OB 00:21
PROVIDERS: ADMIT Obstetrics & Gynecology; ATTEND Obstetrics & Gynecology
DX: Z34.03 Encounter for supervision of normal first pregnancy, third trimester (principal); Z3A.36 36 weeks gestation of pregnancy
CPT/HCPCS: 59025; 99213; G0378

== ENCOUNTER 2024-09-07 21:15 | Emergency (ER) | payer BC, OTHER ==
[2024-09-07 21:27] VITALS: TEMP 101.2
[2024-09-07 21:59] LABS: Absolute Neutrophil Ct (ANC) 6.67 x10^3/uL (1.56-6.13); BASOPHIL % 0.3 % (0.1-1.2); Basophil (Absolute #) 0.02 x10^3/uL (0.01-0.08); Eosinophil % 0.6 % (0.7-5.8); Eosinophil (Absolute #) 0.05 x10^3/uL (0.04-0.36); Hemoglobin 8.3 g/dL (11.2-15.7); IMMATURE GRAN # 0.06 x10^3u/L (0.001-0.031); IMMATURE GRAN % 0.8 % (0.001-0.429); Lymphocyte (Absolute #) 0.58 x10^3/uL (1.18-3.74); Lymphocytes % 7.4 % (19.3-51.7); Mean Corpuscular Hemoglobin 25.2 pg (25.6-32.2); Mean Corpuscular Hgb Concent. 31.9 g/dL (32.2-35.5); Mean Platelet Volume 10.1 fL (9.4-12.3); Monocyte (Absolute #) 0.44 x10^3/uL (0.24-0.86); Monocytes % 5.6 % (4.7-12.5); Neutrophil % 85.3 % (34.0-71.1); Platelet Count 151 x10^3/uL (182-369); Red Blood Count 3.29 x10^6/uL (3.93-5.22); Red Cell Distribution Width 14.9 % (11.7-14.4); White Blood Count 7.8 x10^3/uL (3.98-10.04)
[2024-09-07 22:06] LABS: Appearance Clear (Clear); Bacteria None Seen /HPF (None Seen); Bilirubin Negative (Negative); Blood Negative (Negative); Epithelial Cells Moderate /HPF (None Seen); Glucose, Urine Negative (Negative); Hyaline Casts NONE SEEN /LPF (0-2); Ketones 15 (Negative); Leukocyte Esterase Moderate (Negative); Nitrite Negative (Negative); Protein,Urine Dip Negative (Negative); RBC 0-2 /HPF (0-5); Specific Gravity 1.015 (1.005-1.030)
[2024-09-07 22:16] LABS: ANION GAP 10.7 MEQ/L (5-15); BLOOD UREA NITROGEN < 2 mg/dL (7-17); CHLORIDE 107 mmol/L (98-107); Calcium 8.6 mg/dL (8.4-10.2); Carbon Dioxide 19 mmol/L (22-30); Creatinine 1 0.55 mg/dL (0.52-1.04); EST GLOMERULAR FILTRATION RATE 131.2 ML/MIN; Glucose 99 mg/dL (74-106); Potassium 3.1 mmol/L (3.5-5.1); SODIUM 133 mmol/L (135-145)
--- NOTE | 2024-09-07 22:21 | ERPHSYRPT ---
- History of Present Illness Source: patient Exam Limitations: no limitations Patient Subjective Stated Complaint: fever x2 days, abscess to butt crack that was opened yesterday Triage Nursing Assessment: Pt ambulated into ER without diff, sig other at bedside. Pt c/o fever x2 days. Pt had an abscess drained to buttock region yesterday at [facility]. Abscess area is open approx 0.5cm L X 0.2cm W X 0.1cm D. No drainage noted. No redness or warmth noted around area. Pt has taken Tylenol for fever but only took 500mg at 6pm. Pt is drinking well but has not ate today. Pt is currently 36w5d . FHT are 146 b/min. Pt vomited x1 this morning. Pt denies any pain just generalized achiness. Physician History: Patient is had a fever for a couple days. It was around 101. She does not have any other symptoms. She does not have any respiratory symptoms. She has no abdominal pain or pelvic pain or pelvic discharge. She recently had an I&D of abscess on her gluteal cleft. It was examined it looks to be healing well. She has not had any drainage or discharge from it. This was done about 2 days ago. Basically she has some fever and some mild malaise. Nothing makes symptoms better or worse. Allergies/Adverse Reactions: No Known Drug Allergies Allergy (Verified 09/07/24 21:45) Hx Tetanus, Diphtheria Vaccination/Date Given: No (unknown) Hx Influenza Vaccination/Date Given: (unknown) Travel Risk - International Travel Have you traveled outside of the country in past 3 weeks: No - Emerging Infectious Disease Are you exhibiting symptoms associated with any current EIDs: Yes Symptoms: Fever, Other (Please Comment) Comment: abscess to buttcrack area - Review of Systems Constitutional: Fever, Chills Eyes: No Symptoms Respiratory: No Symptoms Cardiac: No Symptoms Abdominal/Gastrointestinal: No Symptoms Genitourinary Symptoms: No Symptoms Musculoskeletal: No Symptoms Skin: No Symptoms Neurological: No Symptoms - Past Medical History Pertinent Past Medical History: Yes Neurological History: No Pertinent History ENT History: No Pertinent History Cardiac History: No Pertinent History Respiratory History: No Pertinent History Endocrine Medical History: Other Musculoskeletal History: No Pertinent History GI Medical History: No Pertinent History History: No Pertinent History Psycho-Social History: No Pertinent History Female Reproductive Disorders: No Pertinent History Other Medical History: GDM, Abscesses, anemia, low iron - Past Surgical History Past Surgical History: Yes Neuro Surgical History: No Pertinent History Cardiac: No Pertinent History Respiratory: No Pertinent History Gastrointestinal: Appendectomy Genitourinary: No Pertinent History Musculoskeletal: No Pertinent History Female Surgical History: No Pertinent History Other Surgical History: 2011 Appendectomy - Female History Hx Last Menstrual Period: 12/2023 Hx Now: Yes Gestational Age: 36w5d - Social History Smoking Status: Current every day smoker How long have you smoked: 6 yrs Exposure to second hand smoke: No Drug Use: marijuana Patient Lives Alone: Yes - Social Determinants of Health Will the patient participate in the screening: Yes Do you worry about a steady place to live?: No Do you have any problems with any of the following?: No known problems In the past 12 months,have you had to go without utilities?: No Transportation Issues: No Has anyone in your support network made you feel unsafe?: No Have you or anyone in your house had to go without enough: No - Nursing Vital Signs Nursing Vital Signs: Initial Vital Signs Blood Pressure 128/77 09/07/24 21:24 O2 Sat by Pulse Oximetry 88 L 09/07/24 21:24 Pain Scale Pain Intensity 7 - Physical Exam General Appearance: no apparent distress Eye Exam: PERRL/EOMI ENT Exam: normal ENT inspection Respiratory Exam: normal breath sounds, chest non-tender, lungs clear Gastrointestinal/Abdominal Exam: soft, non tender, no distention Pelvic Exam: not done Skin Exam: other (The I&D that she had done was healing well. There is no evidence of infection) SpO2: 97 - Course Nursing assessment & vital signs reviewed: Yes Ordered Tests: Active Orders 24 hr Category Date Time Status BMP Stat Lab 09/07/24 21:50 Completed CBC W DIFF Stat Lab 09/07/24 21:50 Completed CULTURE,URINE Stat Lab 09/07/24 21:51 Received UA W/RFX UR CULTURE Stat Lab 09/07/24 21:51 Completed Medication Summary Discontinued Medications Generic Name Dose Route Start Last Admin Trade Name Freq PRN Reason Stop Dose Admin Trimethoprim/Sulfamethoxazole 1 tab 09/07/24 22:19 09/07/24 22:25 Smz/Tmp Ds Tablet 1 Tablet PO 09/07/24 22:20 1 tab STAT STA Administration Trimethoprim/Sulfamethoxazole Confirm 11/17/24 22:24 Smz/Tmp Ds Tablet 1 Tablet Administered 09/07/24 22:25 Dose 1 tab PO .STK-MED ONE Lab/Rad Data: Laboratory Result Diagrams 09/07/24 21:50 09/07/24 21:50 Laboratory Results 09/07/24 09/07/24 09/07/24 Range/Units 21:51 21:50 21:50 WBC (3.98-10.04) x10^3/uL RBC (3.93-5.22) x10^6/uL Hgb (11.2-15.7) g/dL Hct (34.1-44.9) % MCV (79.4-94.8) fL MCH (25.6-32.2) pg MCHC (32.2-35.5) g/dL RDW (11.7-14.4) % Plt Count (182-369) x10^3/uL MPV (9.4-12.3) fL Gran % (34.0-71.1) % Immature Gran % (Auto) (0.001-0.429) % Nucleat RBC Rel Count (0.00-0.2) % Eos # (Auto) (0.04-0.36) x10^3/uL Immature Gran # (Auto) (0.001-0.031) x10^3u/L Absolute Lymphs (auto) (1.18-3.74) x10^3/uL Absolute Monos (auto) (0.24-0.86) x10^3/uL Absolute Nucleated RBC (0.00-0.012) x10^3u/L Lymphocytes % (19.3-51.7) % Monocytes % (4.7-12.5) % Eosinophils % (0.7-5.8) % Basophils % (0.1-1.2) % Absolute Granulocytes (1.56-6.13) x10^3/uL Basophils # (0.01-0.08) x10^3/uL Sodium 133 L (135-145) mmol/L Potassium 3.1 L (3.5-5.1) mmol/L Chloride 107 (98-107) mmol/L Carbon Dioxide 19 L (22-30) mmol/L Anion Gap 10.7 (5-15) MEQ/L BUN < 2 L (7-17) mg/dL Creatinine 0.55 (0.52-1.04) mg/dL Estimated GFR 131.2 ML/MIN Glucose 99 (74-106) mg/dL Calcium 8.6 (8.4-10.2) mg/dL Urine Color Yellow (Yellow) Urine Appearance Clear (Clear) Urine pH 7.0 (4.6-8.0) Ur Specific [place] 1.015 (1.005-1.030) Urine Protein Negative (Negative) Urine Glucose (UA) Negative (Negative) mg/dL Urine Ketones 15 A (Negative) Urine Blood Negative (Negative) Urine Nitrite Negative (Negative) Urine Bilirubin Negative (Negative) Urine Urobilinogen 1.0 A (0.2) mg/dL Ur Leukocyte Esterase Moderate A (Negative) U Hyaline Cast (Auto) NONE SEEN (0-2) /LPF Urine Microscopic RBC 0-2 (0-5) /HPF Urine Microscopic WBC 11-20 A (0-5) /HPF Ur Epithelial Cells Moderate A (None Seen) /HPF Urine Bacteria None Seen (None Seen) /HPF Urine Culture Reflexed YES (NO) Influenza Type A Ag NEGATIVE (NEGATIVE) Influenza Type B Ag NEGATIVE (NEGATIVE) RSV (PCR) NEGATIVE (NEGATIVE) SARS-CoV-2 (PCR) NEGATIVE (NEGATIVE) 09/07/24 Range/Units 21:50 WBC 7.8 (3.98-10.04) x10^3/uL RBC 3.29 L (3.93-5.22) x10^6/uL Hgb 8.3 L (11.2-15.7) g/dL Hct 26.0 L (34.1-44.9) % MCV 79.0 L (79.4-94.8) fL MCH 25.2 L (25.6-32.2) pg MCHC 31.9 L (32.2-35.5) g/dL RDW 14.9 H (11.7-14.4) % Plt Count 151 L (182-369) x10^3/uL MPV 10.1 (9.4-12.3) fL Gran % 85.3 H (34.0-71.1) % Immature Gran % (Auto) 0.8 H (0.001-0.429) % Nucleat RBC Rel Count 0.0 (0.00-0.2) % Eos # (Auto) 0.05 (0.04-0.36) x10^3/uL Immature Gran # (Auto) 0.06 H (0.001-0.031) x10^3u/L Absolute Lymphs (auto) 0.58 L (1.18-3.74) x10^3/uL Absolute Monos (auto) 0.44 (0.24-0.86) x10^3/uL Absolute Nucleated RBC 0.00 (0.00-0.012) x10^3u/L Lymphocytes % 7.4 L (19.3-51.7) % Monocytes % 5.6 (4.7-12.5) % Eosinophils % 0.6 L (0.7-5.8) % Basophils % 0.3 (0.1-1.2) % Absolute Granulocytes 6.67 H (1.56-6.13) x10^3/uL Basophils # 0.02 (0.01-0.08) x10^3/uL Sodium (135-145) mmol/L Potassium (3.5-5.1) mmol/L Chloride (98-107) mmol/L Carbon Dioxide (22-30) mmol/L Anion Gap (5-15) MEQ/L BUN (7-17) mg/dL Creatinine (0.52-1.04) mg/dL Estimated GFR ML/MIN Glucose (74-106) mg/dL Calcium (8.4-10.2) mg/dL Urine Color (Yellow) Urine Appearance (Clear) Urine pH (4.6-8.0) Ur Specific [place] (1.005-1.030) Urine Protein (Negative) Urine Glucose (UA) (Negative) mg/dL Urine Ketones (Negative) Urine Blood (Negative) Urine Nitrite (Negative) Urine Bilirubin (Negative) Urine Urobilinogen (0.2) mg/dL Ur Leukocyte Esterase (Negative) U Hyaline Cast (Auto) (0-2) /LPF Urine Microscopic RBC (0-5) /HPF Urine Microscopic WBC (0-5) /HPF Ur Epithelial Cells (None Seen) /HPF Urine Bacteria (None Seen) /HPF Urine Culture Reflexed (NO) Influenza Type A Ag (NEGATIVE) Influenza Type B Ag (NEGATIVE) RSV (PCR) (NEGATIVE) SARS-CoV-2 (PCR) (NEGATIVE) - Progress Progress: unchanged Progress Note: Patient was stable throughout stay. On the differential was viral syndrome, UTI, cellulitis, COVID, flu, RSV.Her RSV COVID flu were all negative. She did not have a white count. She could be just having a viral syndrome as well as a UTI. I think she has pyelonephritis. I will start her on Bactrim. She can follow-up with her primary care doctor and return if symptoms worsen 09/07/24 22:18 09/07/24 23:03 Medical Desision Making - Independent Historian Additional History obtained from: Spouse - Diagnostic Testing Diagnostic test were ordered, analyzed, and reviewed by me: Yes - Risk of complications Minimal Risk: Minimal risk of morbidity - Departure Departure Disposition: Home Clinical Impression: Fever, Urinary tract infection Condition: Stable Critical Care Time: No Referrals: PHILIPP SAMUELS MD [Primary Care Provider] - Follow up/PCP as directed Instructions: Fever, Adult (DC), Urinary tract infections in Additional Instructions: Take antibiotics for UTI as directed Prescriptions: Sulfamethoxazole/Trimethoprim [Bactrim Ds Tablet] 1 each PO BID #10 tablet
[2024-09-07] MEDS ORDERED: BACTRIM DS TABLET PO ONE (22:24)
[2024-09-07] MEDS: BACTRIM DS TABLET PO STA (22:25)
[2024-09-07 22:38] LABS: INFLUENZA A NEGATIVE (NEGATIVE); INFLUENZA B NEGATIVE (NEGATIVE); RESPIRATORY SYNCTIAL VIRUS NEGATIVE (NEGATIVE); SARS-CoV-2 Xpert Express NEGATIVE (NEGATIVE)
[2024-09-07 23:02] VITALS: BP 104/43; PULSE 111; RESP 18
[2024-09-07 23:03] VITALS: O2SAT 97
[2024-09-07 23:30] LABS: Slide Review 1 YES
== END 2024-09-07 23:08 | disposition home or self-care (01) ==
LOC: ED 21:15
DX: O23.43 Unspecified infection of urinary tract in pregnancy, third trimester (principal); N39.0 Urinary tract infection, site not specified; Z3A.35 35 weeks gestation of pregnancy; Z98.890 Other specified postprocedural states; R50.9 Fever, unspecified
CPT/HCPCS: 0241U; 36415; 80048; 81001; 85025; 87086; 99283; A9270-GY

== ENCOUNTER 2024-09-23 04:44 | Inpatient (IN) | payer BC, OTHER ==
[2024-09-23] MEDS ORDERED: BRETHINE 1 MG/ML SQ PRN (04:53)
[2024-09-23] MEDS ORDERED: Zofran 4 MG/2 ML VIAL IV PRN (04:53)
[2024-09-23] MEDS ORDERED: XYLOCAINE 1% HCL 20 ML MDV IJ PRN (04:53)
[2024-09-23] MEDS ORDERED: Ephedrine Sulfate 50 MG/ML IV PRN (04:53)
[2024-09-23 05:28] LABS: Absolute Neutrophil Ct (ANC) 4.73 x10^3/uL (1.56-6.13); BASOPHIL % 0.4 % (0.1-1.2); Basophil (Absolute #) 0.03 x10^3/uL (0.01-0.08); Eosinophil % 0.7 % (0.7-5.8); Eosinophil (Absolute #) 0.06 x10^3/uL (0.04-0.36); Hematocrit 28.4 % (34.1-44.9); Hemoglobin 8.8 g/dL (11.2-15.7); IMMATURE GRAN # 0.03 x10^3u/L (0.001-0.031); IMMATURE GRAN % 0.4 % (0.001-0.429); Lymphocyte (Absolute #) 2.67 x10^3/uL (1.18-3.74); Lymphocytes % 32.9 % (19.3-51.7); Mean Cell Volume 79.8 fL (79.4-94.8); Mean Corpuscular Hemoglobin 24.7 pg (25.6-32.2); Mean Platelet Volume 10.2 fL (9.4-12.3); Monocyte (Absolute #) 0.59 x10^3/uL (0.24-0.86); Monocytes % 7.3 % (4.7-12.5); Neutrophil % 58.3 % (34.0-71.1); Platelet Count 240 x10^3/uL (182-369); Red Blood Count 3.56 x10^6/uL (3.93-5.22); Red Cell Distribution Width 15.3 % (11.7-14.4); White Blood Count 8.1 x10^3/uL (3.98-10.04)
[2024-09-23] MEDS: PITOCIN 30 UNITS/ LR 500 ML 30 UNITS/500 ML PLAST..BAG IV SCH (05:55)
[2024-09-23] MEDS: Lactated Ringers 1,000 ML IV ONE (05:55)
[2024-09-23 06:15] LABS: ABO TYPING A; Antibody Screen NEGATIVE (NEGATIVE); RH TYPING NEGATIVE
[2024-09-23 06:23] LABS: Amphetamine,Urine NEGATIVE (NEGATIVE); Barbiturate,Urine NEGATIVE (NEGATIVE); Benzodiazepine,Urine NEGATIVE (NEGATIVE); Cocaine,Urine NEGATIVE (NEGATIVE); Methadone,Urine NEGATIVE (NEGATIVE); Opiate,Urine NEGATIVE (NEGATIVE); PCP,Urine NEGATIVE (NEGATIVE); THC,Urine NEGATIVE (NEGATIVE)
[2024-09-23] MEDS: Lactated Ringers 1,000 ML IV SCH (07:02)
[2024-09-23] MEDS: FENTANYL 2 MCG-BUPIV 0.125%-NS 250 ML Epidur 250 ML EPIDURAL SCH (07:02)
[2024-09-23] MEDS ORDERED: LANSINOH 40 GM TOP PRN (15:00)
[2024-09-23] MEDS: Dermoplast Spray TP PRN (17:24)
[2024-09-23] MEDS: TUCKS TP PRN (17:24)
[2024-09-23] MEDS: MOTRIN 400 MG PO PRN (21:15)
[2024-09-23] MEDS: Docusate Sodium 100 MG PO SCH (21:30)
[2024-09-24 04:59] LABS: BASOPHIL % 0.2 % (0.1-1.2); Basophil (Absolute #) 0.02 x10^3/uL (0.01-0.08); Eosinophil % 0.9 % (0.7-5.8); Eosinophil (Absolute #) 0.08 x10^3/uL (0.04-0.36); Hematocrit 28.3 % (34.1-44.9); Hemoglobin 8.9 g/dL (11.2-15.7); IMMATURE GRAN # 0.04 x10^3u/L (0.001-0.031); IMMATURE GRAN % 0.4 % (0.001-0.429); Lymphocytes % 33.7 % (19.3-51.7); Mean Cell Volume 79.3 fL (79.4-94.8); Mean Corpuscular Hemoglobin 24.9 pg (25.6-32.2); Mean Corpuscular Hgb Concent. 31.4 g/dL (32.2-35.5); Mean Platelet Volume 10.3 fL (9.4-12.3); Monocyte (Absolute #) 0.56 x10^3/uL (0.24-0.86); Monocytes % 6.1 % (4.7-12.5); Neutrophil % 58.7 % (34.0-71.1); Platelet Count 229 x10^3/uL (182-369); Red Blood Count 3.57 x10^6/uL (3.93-5.22); Red Cell Distribution Width 15.8 % (11.7-14.4); White Blood Count 9.2 x10^3/uL (3.98-10.04)
[2024-09-24] MEDS: TYLENOL EXTRA STRENGTH 500 MG PO PRN (06:01)
--- NOTE | 2024-09-24 08:02 | PCM.NOTE ---
Date and Time: 09/24/24 0800 Subjective Assessment: ppd 1 sp pt resting in bed and doing well. able to ambulate and tolerate diet vss afebrile abd; soft uterus; firm lochia; mild hgb; 8.9 a/p sp ppd 1 with anemia anticipate discharge tomorrow Objective Data Vital Signs: Vital Signs - 24 hr Temp Pulse Resp BP BP Pulse Ox 09/24/24 06:00 98.8 F 82 18 125/65 97 09/24/24 05:00 82 18 125/65 97 09/24/24 00:21 98.8 F 76 18 137/60 97 09/23/24 21:00 98.8 F 76 18 137/60 97 09/23/24 17:42 97.7 F 86 20 133/72 98 09/23/24 17:02 98.3 F 85 20 127/65 97 09/23/24 17:00 98.3 F 85 20 127/65 97 09/23/24 16:00 98.3 F 95 H 20 125/80 100 09/23/24 15:30 98.3 F 68 20 121/63 97 09/23/24 15:00 98.3 F 66 20 121/58 97 09/23/24 14:45 98.3 F 85 20 120/58 95 09/23/24 14:30 98.7 F 86 20 126/81 96 09/23/24 14:15 98.7 F 92 H 20 121/67 99 09/23/24 13:45 98.7 F 94 H 20 126/62 100 09/23/24 13:30 98.7 F 86 20 118/57 100 09/23/24 13:15 98.7 F 89 20 114/56 100 09/23/24 13:00 98.7 F 83 20 116/66 116/66 100 09/23/24 12:45 97.5 F 84 20 104/57 100 09/23/24 12:30 97.5 F 83 20 100/58 100 09/23/24 12:00 97.5 F 80 20 90/50 100 09/23/24 11:45 97.5 F 83 20 116/58 100 09/23/24 11:30 97.5 F 78 20 111/55 100 09/23/24 11:15 97.5 F 82 20 120/56 98 09/23/24 11:00 97.5 F 82 20 120/56 98 09/23/24 10:45 97.5 F 76 20 111/58 98 09/23/24 10:30 97.5 F 75 20 111/59 99 09/23/24 10:15 97.5 F 76 20 111/58 98 09/23/24 10:00 97.6 F 80 20 110/56 97 09/23/24 09:45 97.5 F 77 20 110/56 98 09/23/24 09:40 97.6 F 89 20 104/52 98 09/23/24 09:30 97.6 F 68 20 110/56 98 09/23/24 09:15 97.6 F 78 20 109/58 99 09/23/24 09:00 97.6 F 80 20 102/51 102/51 99 09/23/24 08:45 97.6 F 74 20 110/57 98 09/23/24 08:30 97.6 F 90 20 107/56 98 09/23/24 08:15 97.6 F 89 20 104/52 98 Pain Assessment - Last Documented Pain Intensity 4 Pain Scale Used 0-10 Pain Scale Intake and Output: Intake & Output 09/21/24 09/22/24 09/23/24 09/24/24 11:59 11:59 11:59 11:59 Intake Total 1450 Output Total 500 Balance 950 Weight 113.398 kg Lab Results: Lab Results-Last 24 Hours 09/23/24 09/24/24 Range/Units 15:30 04:12 WBC 9.2 (3.98-10.04) x10^3/uL RBC 3.57 L (3.93-5.22) x10^6/uL Hgb 8.9 L (11.2-15.7) g/dL Hct 28.3 L (34.1-44.9) % MCV 79.3 L (79.4-94.8) fL MCH 24.9 L (25.6-32.2) pg MCHC 31.4 L (32.2-35.5) g/dL RDW 15.8 H (11.7-14.4) % Plt Count 229 (182-369) x10^3/uL MPV 10.3 (9.4-12.3) fL Gran % 58.7 (34.0-71.1) % Immature Gran % (Auto) 0.4 (0.001-0.429) % Nucleat RBC Rel Count 0.0 (0.00-0.2) % Eos # (Auto) 0.08 (0.04-0.36) x10^3/uL Immature Gran # (Auto) 0.04 H (0.001-0.031) x10^3u/L Absolute Lymphs (auto) 3.10 (1.18-3.74) x10^3/uL Absolute Monos (auto) 0.56 (0.24-0.86) x10^3/uL Absolute Nucleated RBC 0.00 (0.00-0.012) x10^3u/L Lymphocytes % 33.7 (19.3-51.7) % Monocytes % 6.1 (4.7-12.5) % Eosinophils % 0.9 (0.7-5.8) % Basophils % 0.2 (0.1-1.2) % Absolute Granulocytes 5.40 (1.56-6.13) x10^3/uL Basophils # 0.02 (0.01-0.08) x10^3/uL Screen SEE SEPARATE REPORT Assessment/Plan (1) Vaginal delivery Current Visit: No Status: Acute Code(s): O80 - ENCOUNTER FOR FULL-TERM UNCOMPLICATED DELIVERY
[2024-09-24 08:44] LABS: RPR Non Reactive (Non Reactive)
[2024-09-24] MEDS: Rhogam Plus 300 MCG IM ONE (09:09)
[2024-09-24] MEDS: FERREX 150 PO SCH (09:10)
[2024-09-24] MEDS ORDERED: FERREX 150 PO SCH (10:00)
[2024-09-24 20:15] VITALS: O2SAT 99
[2024-09-24] MEDS: Adacel Vial IM ONE (21:36)
[2024-09-25 03:26] VITALS: RESP 16
--- NOTE | 2024-09-25 07:47 | PCM.NOTE ---
Date and Time: 09/25/24 0746 Subjective Assessment: ppd 2 pt resting in bed and doing well able to ambulate and tolerate diet vss afebrile abd; soft uterus; firm lochia; mild a/p sp ppd 2 dc home today should fu office 3 wks Objective Data Vital Signs: Vital Signs - 24 hr Temp Pulse Resp BP Pulse Ox 09/25/24 03:25 98.1 F 68 16 134/77 99 09/24/24 20:13 98.5 F 79 18 136/85 99 09/24/24 17:00 97.6 F 78 16 129/71 98 09/24/24 09:00 97.7 F 82 14 129/71 98 Pain Assessment - Last Documented Pain Intensity 5 Pain Scale Used 0-10 Pain Scale Intake and Output: Intake & Output 09/22/24 09/23/24 09/24/24 09/25/24 11:59 11:59 11:59 11:59 Intake Total 1450 500 Output Total 500 Balance 950 500 Weight 113.398 kg Lab Results: Lab Results-Last 24 Hours 09/23/24 Range/Units 05:17 RPR Non Reactive (Non Reactive) Assessment/Plan (1) Vaginal delivery Current Visit: No Status: Acute Code(s): O80 - ENCOUNTER FOR FULL-TERM UNCOMPLICATED DELIVERY
--- NOTE | 2024-09-25 07:51 | PCM.DS ---
Discharge Summary Date of Admission: 09/23/24 07:54 Admitting Physician: CARMELITA SUAREZ DO Consults: Consults on Case 09/23/24 04:55 Notify Anesthesia Provider PRN Primary Care Provider: PHILIPP SAMUELS Allergies Allergies No Known Drug Allergies Allergy (Verified 09/07/24 21:45) Hospital Summary - Hospital Course Hospital Course: pt admitted on sep 23 at 39 wks gestation for induction with pitocin and delivered live baby boy without complication on sep 23. pt had received an epidural during labor. during period did well able to ambulate and tolerate diet. pt was noted having a hgb level at 8.9 and was placed on iron supplementation. pt at this time stable for discharge and advised to fu in office in 3 wks. pt was advised to take iron sulfate twice daily and to call for any issues that may arise. all questions answered to her satisfaction and at this time stable for discharge. - Vitals & Intake/Output Vital Signs: Vital Signs Temperature 98.1 F 09/25/24 03:25 Pulse Rate 68 09/25/24 03:25 Respiratory Rate 16 09/25/24 03:25 Blood Pressure 134/77 09/25/24 03:25 O2 Sat by Pulse Oximetry 99 09/25/24 03:25 Intake & Output: Intake & Output 09/22/24 09/23/24 09/24/24 09/25/24 11:59 11:59 11:59 11:59 Intake Total 1450 500 Output Total 500 Balance 950 500 Weight 113.398 kg - Lab Result Diagrams: 09/24/24 04:12 Lab Results-Last 24 Hrs: Lab Results-Last 24 Hours 09/23/24 Range/Units 05:17 RPR Non Reactive (Non Reactive) Micro Results-Entire Visit: Microbiology 09/23/24 09:38 Urine Culture - Preliminary Catherized NO GROWTH TO DATE Final Diagnosis/Problem List - Final Discharge Diagnosis/Problem (1) Vaginal delivery Current Visit: No Status: Acute Code(s): O80 - ENCOUNTER FOR FULL-TERM UNCOMPLICATED DELIVERY - Discharge Disposition: Home, Self-Care Condition: Stable Prescriptions: No Action Ferrous Sulfate 325 mg [Feosol 325 mg] 325 mg PO BID #60 tablet Follow up with: PHILIPP SAMUELS MD [Primary Care Provider] - WAHIB,CARMELITA, DO [ACTIVE STAFF] - 3 weeks (should fu in office in 3 wks)
[2024-09-25 09:53] VITALS: BP 132/78; PULSE 79; TEMP 97.9
== END 2024-09-25 14:25 | disposition home or self-care (01) | DRG 807 ==
LOC: OB 04:44 → OBSVTOIN 07:54
PROVIDERS: ADMIT Obstetrics & Gynecology; ATTEND Obstetrics & Gynecology
PROC: 10E0XZZ Delivery of Products of Conception, External Approach (ICD-10-PCS; principal; 2024-09-23)
PROC: 0KQM0ZZ Repair Perineum Muscle, Open Approach (ICD-10-PCS; 2024-09-23)
DX: O70.1 Second degree perineal laceration during delivery (principal); Z37.0 Single live birth; Z3A.39 39 weeks gestation of pregnancy
CPT/HCPCS: 36415; 59400; 80307; 85025; 85461; 86592; 86850; 86900; 86901; 87086; 90471; 90715; J2590; J2790; A9270-GY